=== PATIENT | female | born 1980 | race Asian ===

== ENCOUNTER 2016-07-30 10:56 | Inpatient (IN) | payer OTHER ==
[2016-08-11] MEDS ORDERED: DINOPROSTONE 10 MG SUP VG ONE (11:29)
[2016-08-11] MEDS ORDERED: PENICILLIN G POTASSIUM 5 MMU in NS 0.9% (MINI-BAG PLUS) 100 ML IV ONE (11:29)
[2016-08-11] MEDS ORDERED: OXYTOCIN 10 UNITS/ML VIAL ONE (12:01)
[2016-08-11] MEDS ORDERED: LACTATED RINGERS 1,000 ML ONE (12:01)
[2016-08-11] MEDS ORDERED: IV START KIT ONE (12:01)
[2016-08-11] MEDS ORDERED: MINERAL OIL 25 ML BOT ONE (12:02)
[2016-08-11] MEDS ORDERED: LIDOCAINE 1% (PRES FREE) 30 ML VIAL ONE (12:02)
[2016-08-11] MEDS ORDERED: PUMP TUBING ONE (12:02)
[2016-08-11] MEDS ORDERED: OXYTOCIN IN LR 500 ML IV ONE (12:02)
[2016-08-11] MEDS ORDERED: LIDOCAINE Viscous 2% 15 ML UDCUP ONE (12:02)
[2016-08-11 12:32] VITALS: BMI 27.0
[2016-08-11 13:28] LABS: HEMATOCRIT 36.4 % (37.0-47.0); HEMOGLOBIN 11.7 gm/l (12.0-16.0); MEAN CELL VOLUME 85.6 fl (81.0-99.0); MEAN CORPUSCULAR HEMOGLOBIN 27.5 pg (27.0-31.0); MEAN CORPUSCULAR HGB CONC 32.1 g/dl (33.0-37.0); RED CELL DISTRIBUTION WIDTH 14.6 % (11.5-14.5)
--- NOTE | 2016-08-11 17:05 | PCMAN ---
OB Admission Note - History : 1 Term: 0 : 0 Abortions (S&E): 0 Livin Gestational Age (weeks): 41 Days (#/7): 5 Admit Cervical Dilation:: 0 Admit Cervical Effacement (%):: 50 Admit Presentaton:: vtx Membrane Status: Ruptured Membranes Comment:: pt admitted from office with c/o ROM - grossly ROM with positive nitrazine Contractions: Yes Contraction Frequency:: 1-5 EFW:: 3300 Summary of Course:: Pt is 35yo , matteo 07/30/16, was a transfer of care from [place] at [address] Mohan. Pt has been followed for post-dates, with NST NST today is reactive. Pt came into the office c/o SROM and light vaginal bleeding. Exam shows grossly ruptured with positive nitrazine. Cervix is closed. - Labs Blood Type: B (+) positive - Physical Exam General: Afebrile, No Acute Distress Psych/Mental Status: Mood/Affect Appropriate Lungs: Clear to Auscultation Bilaterally Cardiovascular: Regular Rate and Rhythm Abdomen: Other (gravid efw 3300g), No Tenderness Genitourinary: Other (cervix is closed, 50, -3, SROM) - Additional Comments 35yo at 41+5, SROM, post-dates Admit to [facility] POS - PCN protocol cervical ripening - cervidil indication and risks of induction discussed including risk of hyperstimulation, infection, c/section NST is reassuring at this time.
--- NOTE | 2016-08-11 17:41 | PDOC36 ---
Provider Note Subject: Induction Note: No c/o. Not feeling a lot of pain. FHT: 150, reactive, mod fer, no decels [place]: q8min s/p cervidil 1330 PCN for GBS continue cervical ripening not a lot of leakage of fluid, per RN, may be small/slow leak. However pt is post-dates and will continue with induction
[2016-08-11] MEDS ORDERED: HYDROXYZINE PAMOATE 50 MG CAPSULE PO PRN (19:29)
[2016-08-11] MEDS: PENICILLIN G 3 MIL UNIT PREMIX 3 MMU in Premix (D5W) 50 ml 1 EACH IV SCH (22:18)
[2016-08-11] MEDS: LACTATED RINGERS 1,000 ML IV SCH (22:18)
[2016-08-12] MEDS ORDERED: DINOPROSTONE 10 MG SUP VG ONE (01:43)
[2016-08-12] MEDS: PENICILLIN G 3 MIL UNIT PREMIX 3 MMU in Premix (D5W) 50 ml 1 EACH IV SCH ×5 (02:04→23:11)
--- NOTE | 2016-08-12 05:20 | PDOC36 ---
Provider Note Subject: Induction Note: Pt with cervidil overnight Repeat exam at 0130 by RN - fingertip 2nd cervidil was placed FHT: 130, reactive, mod fer [place]: q4-5 min continue cervidil cervical ripening.
--- NOTE | 2016-08-12 07:52 | PDOC36 ---
Provider Note Subject: Patient starting to feel increasingly uncomfortable. +FM. VSS SVE deferred FHT 120/mod/+accels/-decels. [place] q4 A/P 35 yo @41.6 IOL for postdates Cervidil to be removed at 1400 FHT reviewed since admission. Cat I Pain medication PRN. Continue to monitor.
[2016-08-12] MEDS ORDERED: PENICILLIN G POTASSIUM 5 MMU VIAL ONE (14:47)
[2016-08-12] MEDS ORDERED: NS 0.9% (MINI-BAG PLUS) 100 ML IV ONE (14:47)
[2016-08-12] MEDS: LACTATED RINGERS 1,000 ML IV SCH ×3 (14:56→21:47)
[2016-08-12] MEDS ORDERED: PENICILLIN G POTASSIUM 5 MMU in NS 0.9% (MINI-BAG PLUS) 100 ML IV ONE (15:00)
[2016-08-12] MEDS: OXYTOCIN IN LR 500 ML IV PRN ×5 (16:21→23:20)
--- NOTE | 2016-08-12 17:07 | PDOC36 ---
Provider Note Subject: Feeling tired of being . VSS SVE://-2 per RN, unchanged FHT:125/mod/+accels/-decels [place]: q3-7 A/P 35yo @41.6, SROM, labor Continue pitocin Expect Cat I tracing.
[2016-08-13] MEDS ORDERED: LACTATED RINGERS 1,000 ML IV SCH (01:02)
[2016-08-13] MEDS ORDERED: EPIDURAL PUMP SET ONE (01:06)
[2016-08-13] MEDS ORDERED: FENTANYL/ROPIVACAINE EPIDURAL 250 ML EP ONE (01:06)
[2016-08-13] MEDS: LACTATED RINGERS 1,000 ML IV SCH ×6 (01:35→14:44)
[2016-08-13] MEDS ORDERED: FENTANYL/ROPIVACAINE EPIDURAL 250 ML EP SCH (02:00)
[2016-08-13] MEDS ORDERED: EPIDURAL PROCEDURE TRAY ONE (02:12)
[2016-08-13] MEDS ORDERED: ROPIVACAINE 0.5% 30 ML VIAL ONE ×2 (02:12→08:19)
[2016-08-13] MEDS ORDERED: SODIUM CHLORIDE 0.9% 500 ML IV PRN (02:16)
[2016-08-13] MEDS ORDERED: EPHEDRINE SULFATE 50 MG/ML 1ML VIAL IV PRN ×2 (02:16→10:45)
[2016-08-13] MEDS ORDERED: NALBUPHINE HCL 20 MG/ML AMP IV PRN ×2 (02:16→10:45)
[2016-08-13] MEDS ORDERED: DIPHENHYDRAMINE HCL 50 MG/1 ML VIAL IV PRN ×3 (02:16→11:06)
[2016-08-13] MEDS ORDERED: LACTATED RINGERS 500 ML IV PRN (02:16)
[2016-08-13] MEDS ORDERED: METOCLOPRAMIDE HCL 5 MG/ML 2ML VIAL IV PRN (02:16)
[2016-08-13] MEDS ORDERED: ONDANSETRON 4 MG/2ML 2 ML VIAL IV PRN ×2 (02:16→10:45)
[2016-08-13] MEDS ORDERED: NALOXONE HCL 0.4 MG/ML VIAL IV PRN ×2 (02:16→10:45)
[2016-08-13] MEDS: PENICILLIN G 3 MIL UNIT PREMIX 3 MMU in Premix (D5W) 50 ml 1 EACH IV SCH ×2 (03:40→07:13)
[2016-08-13] MEDS: OXYTOCIN IN LR 500 ML IV PRN (03:45)
--- NOTE | 2016-08-13 07:14 | PDOC36 ---
Provider Note Note: ob note: patient admitted by dr tamayo on 08/11/16 with srom and induction of labor. cervix 8cm/100%/vtx 0 station. bloody show, category 2 tracing. estimated weight 6 1/2- 7 lbs. anticipate vaginal delivery
--- NOTE | 2016-08-13 09:20 | PDOC36 ---
Provider Note Note: ob note: called to evaluate prolonged deceleration lasting [address] tamayo was in the unit and responded before i arrived. he placed an internal monitor, discontinued pitocin. his exam: 9cm dilated. will monitor for further prolonged decelerations.
[2016-08-13] MEDS ORDERED: ROPIVACAINE 0.75% 20 ML AMP ONE (09:42)
--- NOTE | 2016-08-13 09:44 | PDOC36 ---
Provider Note Note: ob note: minimal variability after discontinuation of pitocin. cervix 9 cm. 100% , vertex 0 station. i discussed these findings with patient and and my recommendation to proceed with operative delivery. risks, reasons, complications and alternatives discussed in simple terms, all questions answered. informed consent taken with third republican witness. blood tinged urine noted in [place].
[2016-08-13] MEDS ORDERED: MORPHINE SULFATE (DURAMORPH) 1 MG/ML 10ML AMP ONE (10:32)
[2016-08-13] MEDS ORDERED: OXYTOCIN 10 UNITS/ML VIAL ONE (10:37)
[2016-08-13] MEDS ORDERED: PROMETHAZINE HCL 25 MG/ML VIAL IM PRN (10:45)
[2016-08-13] MEDS ORDERED: MORPHINE SULFATE 4 MG/ML SYRINGE IV PRN (10:45)
[2016-08-13] MEDS ORDERED: MORPHINE SULFATE 10 MG/ML SYRINGE IV PRN (10:45)
[2016-08-13] MEDS ORDERED: LANOLIN 50 APPLIC/7G TUBE TP PRN (11:06)
[2016-08-13] MEDS ORDERED: DIPHENHYDRAMINE HCL 25 MG CAPSULE PO PRN (11:06)
[2016-08-13] MEDS ORDERED: OXYCODONE/ACETAMINOPHEN 5/325 MG TABLET PO PRN (11:06)
--- NOTE | 2016-08-13 11:25 | PCMBPN ---
Brief Post Op Note: Date of Procedure: 08/13/16 Start Time: Preoperative Diagnosis: 1. intolerance to labor Postoperative Diagnosis: 1. Same Procedure: primary lower segment cesarian section Surgeon: Beny Mohan Assist:ms ebonie toney Anesthesia: mr dalton, epidural Findings: term sized uterus, both ovaries and tubes normal, no amniotic fluid, live baby girl, gigi position, 8/8, weight 7lbs 6 oz, placenta intact Condition: stable Complications: none IV Fluids: mLs of LR Urine Output: mLs Estimated Blood Loss: 400 mLs Tourniquet Time: N/A Specimens: N/A Implants: Drains: N/A closure sejal. patient tolerated procedure well and was returned to recovery room in stable condition with arroyo draining red tinged urine which was present before the surgery.
--- NOTE | 2016-08-13 12:08 | OP ---
Grant Jeronimo : 1980 NAME OF OPERATION: Primary lower segment section. PREOPERATIVE DIAGNOSIS: intolerance to labor. POSTOPERATIVE DIAGNOSIS: intolerance to labor. ENGRAVER STEEL PLATE: Dr. Beny Urbina. BANDOLEER PACKER: Heather Mcdowell. ANESTHESIA: Raffi, Epidural. DESCRIPTION OF PROCEDURE: Dictation begins with patient in the supine position with the Li draining blood tinged urine at the onset of the procedure. She had received a total of 12 gm of penicillin for history of positive Group B Strep therefore, Ancef was not given to the patient at the onset of the procedure. The abdomen was prepared with chloraprep and draped in the usual manner and after a timeout and adequate drying time for the prep the skin was tested and found to be with complete anesthesia. First a knife was used to made a pfannenstiel incision through the skin. The subcutaneous tissue was dissected down to the rectus abdominis fascia which was nicked with a second knife and carried laterally with Oakley scissors. All bleeding point were clamped with Mayra's and bovied. The superior portion of the fascia was grasped with Fuad clamps. A median raphe divided with the Oakley scissors. A similar procedure was performed on the lower end of the incision. The muscle was split in the mid portion and the peritoneum identified, picked up with a Mayra clamp, divided above the clamp with Oakley scissors, and then the peritoneum was stretched laterally. A Johana retractor was inserted into the lower end of the incision. Findings included a term sized uterus. Both ovaries and tubes appeared normal. Tissue forceps were used to grasp the peritoneal reflections on the uterus and the bladder flap was created using a semicircular incision with the Metzenbaum scissors. The bladder was then bluntly dissected down and placed underneath the [place] retractor. A knife was then used to make a lower uterine incision which was stretched laterally. There was no amniotic fluid noted. A live baby girl was delivered from the TITO position by vacuum extraction. The vacuum placed in the mid sagittal line 1.5 cm in front of the posterior fontenelle, lasted less than 30 seconds and did not slip. The baby was delivered uneventfully and she cried spontaneously. She was suctioned after she cried. With the baby out, the cord was clamped twice with two Mayra clamps, divided in between with bandage scissors and the baby was given to the nursing staff for care. Cord blood was obtained and then the placenta was delivered manually intact. The uterus was wiped clean of membranes and blood clots. Ring forceps were placed at the 3, 6, 9, and 12 o'clock positions of the uterus and the uterus was closed in two layers with #1 Chromic continuous interlocking sutures the second layer imbricating the first. There were two 2 cm hematoma's noted on each angle of the uterine incision and these were individually sutured with 1 Chromic figure of eight suture resulting in complete hemostasis and no expanding of the hematoma's. Now with complete hemostasis and sponge and instrument count reported as correct the rectus abdominis muscle was reapproximated with three individual sutures of 1 Chromic material. The fascia was closed in right and left halves with 1 Vicryl material and that was done in a continuous manner interlocking the first stitch. Subcutaneous bleeding points were bovied prior to closure of the skin. The skin was closed with sejal. Estimated blood loss 400 mL. The patient tolerated the procedure well and was returned to recovery room in stable condition with the Li draining red tinged urine which was present prior to the surgery being performed. JOB: [id number]
[2016-08-13] MEDS ORDERED: LACTATED RINGERS 1,000 ML ONE (13:30)
[2016-08-13] MEDS: MORPHINE SULFATE 2 MG/ML SYRINGE IV PRN ×2 (13:36→20:49)
--- NOTE | 2016-08-13 13:36 | HP ---
Grant Jeronimo [id number] : 1980 HISTORYOF PRESENT ILLNESS: Grant Jeronimo is a female with an estimated date of delivery of 07/30/2016 currently 42 weeks on 08/13/2016. She was admitted and the initial history and physical was performed by Dr. Goddard. My involvement started on 08/13/2016 as the provider educational aid. When I first examined her she was 8 cm with category II tracing noted. She was given active management of category II tracing including position change and oxygen and this was prior to my assuming care on 08/13/2016. I was called back approximately 2-1/2 hours after my initial exam that the patient had a prolonged variable deceleration of 4 minute duration. The Pitocin at this point was discontinued and the tracing improved after the deceleration, however, it was noted that the beat to beat variability changed from moderate variability to minimal over time. At this point, I recommended a primary section with patient and and they concurred. Risks, reason, complications, living will, alternatives were discussed all in simple language and all questions were answered and the patient was set up for a section. OB HISTORY: She is 1, para 0. PRINCIPAL TECHNOLOGIST HISTORY: Menarche 17 x28 x3. Sexually transmitted diseases negative. She was, however, positive for Group B Strep and she was a late transfer of care at 32 weeks gestation to [facility]. She had an uneventful prior to transfer. PAST MEDICAL HISTORY: Negative. ALLERGIES: None. SOCIAL HISTORY: Nonsmoker, nondrinker. PAST SURGICAL HISTORY: Tonsils. FAMILY HISTORY: Negative. REVIEW OF SYSTEMS: She is in active labor and is experiencing contractions despite the epidural, but no other complaints. PHYSICAL EXAMINATION: GENERAL: Is a thin female in labor. HEENT: Normal. NECK: Supple. Thyroid not palpable. BREAST: Deferred, however, in the course it was negative. HEART: Regular sinus rhythm. No murmurs. LUNGS: Clear. ABDOMEN: Gravid, estimated weight of 6-1/2 to 7 pounds. PELVIC: Last pelvic exam prior to the . Cervix was 9 cm, 100% effaced, vertex presentation, TITO position and at 0 station. IMPRESSION: intolerance to labor. PLAN: Primary lower segment section. The initial history and physical admitting note was done by Dr. Goddard. JOB: [id number]
[2016-08-13] MEDS ORDERED: SODIUM CHLORIDE 0.9% FLUSH 10 ML ONE (13:40)
[2016-08-13] MEDS: DOCUSATE SODIUM 100 MG CAPSULE PO SCH (22:22)
[2016-08-14] MEDS: LACTATED RINGERS 1,000 ML IV SCH ×5 (00:17→07:38)
[2016-08-14] MEDS: IBUPROFEN 800 MG TABLET PO PRN ×3 (00:28→16:53)
[2016-08-14 06:58] LABS: HEMATOCRIT 30.8 % (37.0-47.0); HEMOGLOBIN 10.2 gm/l (12.0-16.0)
[2016-08-14] MEDS: PENICILLIN G 3 MIL UNIT PREMIX 3 MMU in Premix (D5W) 50 ml 1 EACH IV SCH (07:38)
[2016-08-14] MEDS: PRENATAL VIT/FE FUMARATE/FA 1 TABLET PO SCH (08:48)
[2016-08-14] MEDS: DOCUSATE SODIUM 100 MG CAPSULE PO SCH ×2 (08:48→20:18)
--- NOTE | 2016-08-14 08:54 | PDOC44 ---
- Subjective Day: 1 Doing well. Pain controlled. Tolerating diet. . Reports Flatus, Reports Pain Tolerable, Reports , Reports Lochia Moderate, Reports Tolerating Regular Diet - Objective Temp Pulse Resp BP Pulse Ox 98.5 F 90 18 107/61 94 08/14/16 08:34 08/14/16 08:34 08/14/16 08:34 08/14/16 08:34 08/13/16 18:10 Lab Results 08/14/16 06:15 Hgb 10.2 L Hct 30.8 L Current Medications Generic Name Dose Route Start Last Admin Trade Name Freq PRN Reason Stop Dose Admin Diphenhydramine HCl 25 - 50 mg 08/13/16 11:06 Benadryl PO Q6H PRN Itching (Mild/Moderate) Diphenhydramine HCl 25 - 50 mg 08/13/16 11:06 Benadryl IV Q6H PRN Itching (Severe) Diphenhydramine HCl 25 - 50 mg 08/13/16 10:45 Benadryl IV 08/14/16 10:39 Q4H PRN Itching Docusate Sodium 100 mg 08/13/16 21:00 08/14/16 08:48 Colace PO 100 mg BID KELVIN Administration Emollient Ointment 1 applic 08/13/16 11:06 [id number] TP PRN PRN sore nipples Ephedrine Sulfate 5 - 10 mg 08/13/16 10:45 Ephedrine Sulfate IV 08/14/16 10:39 Q5M PRN Lactated Ringer's 1,000 mls @ 125 mls/hr 08/13/16 14:30 08/14/16 07:37 Lactated Ringers IV Not Given .Q8H KELVIN Ibuprofen 800 mg 08/13/16 11:06 08/14/16 08:48 Motrin PO 800 mg Q8H PRN Administration Pain Morphine Sulfate 1 - 5 mg 08/13/16 10:45 08/13/16 20:49 Morphine Sulfate IV 08/14/16 10:39 1 mg Q1H PRN Administration Pain (Breakthrough) Morphine Sulfate 1 - 5 mg 08/13/16 10:45 Morphine Sulfate IV 08/14/16 10:39 Q1H PRN Pain (Breakthrough) Morphine Sulfate 1 - 5 mg 08/13/16 10:45 Morphine Sulfate IV 08/14/16 10:39 Q1H PRN Pain (Breakthrough) Multivi/Iron Carb/Fe Sulf/FA/Prenat 1 tab 08/14/16 09:00 08/14/16 08:48 Plus PO 1 tab DAILY KELVIN Administration Nalbuphine HCl 1 - 5 mg 08/13/16 10:45 Nubain IV 08/14/16 10:39 Q4H PRN Itching Naloxone HCl 0.2 - 0.4 mg 08/13/16 10:45 Narcan IV 08/14/16 10:39 Q5M PRN Ondansetron HCl 4 mg 08/13/16 10:45 Zofran IV 08/14/16 10:39 Q6H PRN Nausea/Vomiting Oxycodone/Acetaminophen 1 - 2 tab 08/13/16 11:06 Percocet 5/325 PO Q4H PRN Pain (Moderate) Promethazine HCl 6.25 - 12.5 mg 08/13/16 10:45 Phenergan IM 08/14/16 10:39 Q4H PRN Nausea/Vomiting Sodium Chloride 10 ml 08/13/16 17:00 08/14/16 07:12 Normal Saline 10ml Flush IV Not Given Q8HR KELVIN Sodium Chloride 10 ml 08/13/16 17:00 08/14/16 07:12 Normal Saline 10ml Flush IV Not Given Q8HR [facility] - Physical Exam General: Afebrile Psych/Mental Status: Mood/Affect Appropriate, Judgment/Insight Intact, Bonding Well Neurological: Grossly Intact, Alert, Oriented x 4 HEENT: Atraumatic, PERRLA, EOMI Lungs: Clear to Auscultation Bilaterally, Normal Air Movement Cardiovascular: Regular Rate and Rhythm, Normal S1, Normal S2 Breast: Soft, Skin intact Fundus: Firm, Midline, At Umbilicus Abdomen: Normal Bowel Sounds Lochia: Moderate Rectal Exam: Deferred Extremities: Full ROM Skin: Normal Color, Warm, Dry, Intact Wound BED OPERATOR: Dressing in Place, Dressing Clean/Dry/Intact Disposition: Anticipate DC Home Tomorrow
[2016-08-15] MEDS: IBUPROFEN 800 MG TABLET PO PRN ×2 (00:36→08:53)
[2016-08-15] MEDS: LACTATED RINGERS 1,000 ML IV SCH ×2 (05:53→07:27)
--- NOTE | 2016-08-15 06:59 | PDOC39B ---
Hospital Course: ADMIT DATE: 08/11/16 DISCHARGE DATE: 08/15/16 ADMISSION DIAGNOSES: intrauterine at 41.5 weeks, spontaneous rupture of membranes, group b strep positive PROCEDURES: induction of labor, primary lower segment cesarian section HISTORY OF PRESENT ILLNESS: 35 year old G1 T0 L0 at 42 weeks 0 days presenting with spontaneous rupture of membranes, was induced, progressed to 9 cm but had c section for intolerance to labor with category 2 tracing. HOSPITAL COURSE: The patient had an uneventful post operative course with the exception of anemia. By day of discharge the patient is ambulating, eating, voiding, and passing flatus without difficulty. Pain is controlled and lochia is appropriate. She is [] - Physical Exam Vital Signs: Temp Pulse Resp BP Pulse Ox 98.2 F 73 18 91/54 94 08/15/16 02:45 08/15/16 02:45 08/15/16 02:45 08/15/16 02:45 08/13/16 18:10 General: Afebrile, No Acute Distress Psych/Mental Status: Mood/Affect Appropriate, Judgment/Insight Intact, Bonding Well Lungs: Clear to Auscultation Bilaterally, Normal Air Movement Breast: Soft, Skin intact, Nipples Intact, No Tenderness, No Erythema, No Engorged Fundus: Firm, Midline, Below Umbilicus, Other (nontender) Abdomen: Normal Bowel Sounds, Other, No Tenderness (passed flatus, had bowel movement) Genitourinary: Other (voiding without difficulty) Lochia: Light Extremities: No Tenderness Wound: Well Approximated, Julien Intact, No Drainage, No Erythema, No Rash, No Edema - Discharge Diagnosis (1) intolerance to labor, delivered, current hospitalization Status: Acute (2) Anemia, Status: Acute - Discharge Plan Condition: Stable Disposition: Home Additional Instructions: nothing in vagina x 6 weeks, no heavy lifting, may drive a car in one week, analgesics as needed, take iron supplementation as prescribed Prescriptions: Ibuprofen [Motrin] 1 tab PO Q6H PRN #30 tablet PRN Reason: Pain FERROUS SULFATE (65 Fe) [IRON FERROUS SULFATE 325 MG TABLET (SHF)] 325 mg PO DAILY #30 tab Oxycodone HCl/Acetaminophen [PERCOCET 5/325 MG TABLET (SHF)] 1 - 2 tab PO Q4H PRN #14 tablet PRN Reason: Pain (Moderate)
[2016-08-15 08:04] VITALS: BP 114/75
[2016-08-15] MEDS: PRENATAL VIT/FE FUMARATE/FA 1 TABLET PO SCH (08:53)
[2016-08-15] MEDS: DOCUSATE SODIUM 100 MG CAPSULE PO SCH (08:53)
[2016-08-15] MEDS ORDERED: LACTATED RINGERS 1,000 ML ONE (16:55)
== END 2016-08-15 14:39 | disposition home or self-care (01) | DRG 765 ==
LOC: EDSTATUS 10:56 → FBC 08-11 10:57
PROVIDERS: ADMIT Obstetrics & Gynecology; ATTEND Obstetrics & Gynecology
PROC: 3E0P7GC Introduction of Other Therapeutic Substance into Female Reproductive, Via Natural or Artificial Opening (ICD-10-PCS; 2016-08-11)
PROC: 10H07YZ Insertion of Other Device into Products of Conception, Via Natural or Artificial Opening (ICD-10-PCS; 2016-08-12)
PROC: 4A1H7CZ Monitoring of Products of Conception, Cardiac Rate, Via Natural or Artificial Opening (ICD-10-PCS; 2016-08-12)
PROC: 10D00Z1 Extraction of Products of Conception, Low, Open Approach (ICD-10-PCS; principal; 2016-08-13)
DX: O48.0 Post-term pregnancy (principal); D62 Acute posthemorrhagic anemia; O99.824 Streptococcus B carrier state complicating childbirth; O76 Abnormality in fetal heart rate and rhythm complicating labor and delivery; O90.81 Anemia of the puerperium; Z3A.41 41 weeks gestation of pregnancy; Z37.0 Single live birth

== ENCOUNTER 2016-07-30 11:35 | Outpatient (CLI) | payer OTHER ==
[2016-07-30 12:10] VITALS: BMI 26.0
--- NOTE | 2016-07-30 13:06 | US ---
Exam: Biophysical profile ultrasound COMPARISON: 07/16/2016 INDICATION: Possible irregular heart rate. Findings: Biophysical profile ultrasound was obtained. Real-time sonographic imaging demonstrated a single live intrauterine in cephalic presentation with a heart rate of 131 bpm. Heart rate appeared regular. TAB is 12.0 cm. Biophysical profile score is as follows: breathing movements: 2 motion: 2 tone: 2 Amniotic fluid volume: 2 Total score 8 out of 8. IMPRESSION: 1. Biophysical profile score is normal, 8 out of 8. 2. Single live intrauterine in cephalic presentation with a heart rate of 131 bpm. 3. TAB 12.0 cm.
== END 2016-07-30 13:53 | disposition home or self-care (01) ==
LOC: FBCOUT 11:35 → FBC 11:35 → FBCOUT 13:53
PROVIDERS: ATTEND Obstetrics & Gynecology
DX: O26.899 Other specified pregnancy related conditions, unspecified trimester (principal); Z3A.00 Weeks of gestation of pregnancy not specified